=== PATIENT | female | born 1985 | race Caucasian/White ===

== ENCOUNTER 2017-12-23 07:54 | Observation (INO) | payer OTHER ==
--- NOTE | 2017-12-23 08:28 | ERPHSYRPT ---
- History of Present Illness Time Seen by Provider: 12/23/17 08:17 Source: patient Exam Limitations: no limitations Patient Subjective Stated Complaint: PT states "Last we went throught the process at [facility] and I passed everything fine on thursday but ever since then, I wake up with severe abdominal pain and pressure on my rectum. " Triage Nursing Assessment: Pt alert and oriented X 3, skin pt ambutlates without difficutly, able to speak in clear full sentences. PT will occasionally grimace and hold her abdomen. Physician History: patient presents with lower abdominal pain for past 3-4 days. Pt. is a at 8 weeks in her , who decided to have an elective . [facility] apparently [facility] and had elective 6 days ago. Patient took multiple meds including Mifeprex and misoprostol. Patient states she started passing blood clots and tissue on Thursday according to plan. Patient was doing well until following day when she continued to have lower abdominal crampy pain, that was intermittent lasting for 1-1/2 hour and then resolve spontaneously. [facility] called [facility] and was told that this was normal. Patient continued to have lower abdominal pain, crampy, localized and intermittent. Patient also continue to have some vaginal bleeding as well. Patient denies any fever, chills, nausea, vomiting, diarrhea or urinary symptoms. Patient been taking ibuprofen with some relief of her discomfort. Patient states pain is minimal presently. Timing/Duration: day(s) (4), intermittent Activites at Onset: rest Quality: cramping Onset Location: suprapubic, vaginal Pain Radiation: none Severity of Pain-Max: moderate Severity of Pain-Current: mild Prior abdominal problems: none Sexual intercourse history: single partner Modifying Factors: Improves With: antacids (improves), movement (improves) Associated Symptoms: abdominal pain, , No fever, No chills, No nausea, No vomiting, No dysuria, No urinary frequency Allergies/Adverse Reactions: No Known Drug Allergies Allergy (Unverified 12/23/17 08:07) Home Medications: Alprazolam 0.5 mg [xanAX 0.5 MG] 0.5 mg PO PRN 12/23/17 [History] Hx Tetanus, Diphtheria Vaccination/Date Given: No Hx Influenza Vaccination/Date Given: No Hx Pneumococcal Vaccination/Date Given: No - Review of Systems Constitutional: No Fever, No Chills Eyes: No Symptoms Ears, Nose, & Throat: No Symptoms Respiratory: No Cough, No Dyspnea Cardiac: No Chest Pain, No Edema, No Syncope Abdominal/Gastrointestinal: Abdominal Pain, No Nausea, No Vomiting, No Diarrhea , No Melena, No Appetite Changes Genitourinary Symptoms: Vaginal Bleeding, No Dysuria, No Urgency, No Vaginal Discharge Musculoskeletal: No Symptoms, No Back Pain, No Neck Pain Skin: No Symptoms, No Rash Neurological: No Symptoms, No Dizziness, No Focal Weakness, No Sensory Changes Psychological: No Symptoms Endocrine: No Symptoms All Other Systems: Reviewed and Negative - Past Medical History Pertinent Past Medical History: Yes Psycho-Social History: Anxiety - Past Surgical History Past Surgical History: No - Social History Smoking Status: Never smoker Exposure to second hand smoke: No Drug Use: none Patient Lives Alone: No - Female History Hx Last Menstrual Period: 12/23/2017 Hx Now: No - Nursing Vital Signs Nursing Vital Signs: Initial Vital Signs Temperature 98.6 F 12/23/17 07:59 Pulse Rate 84 12/23/17 07:59 Respiratory Rate 18 12/23/17 07:59 Blood Pressure 151/99 12/23/17 07:59 O2 Sat by Pulse Oximetry 98 12/23/17 07:59 Pain Scale Pain Intensity 6 - Physical Exam General Appearance: no apparent distress, alert Eye Exam: PERRL/EOMI, eyes nml inspection Ears, Nose, Throat Exam: normal ENT inspection, TMs normal, pharynx normal, moist mucous membranes Neck Exam: normal inspection, non-tender, supple, full range of motion Respiratory Exam: normal breath sounds, lungs clear, No respiratory distress Cardiovascular Exam: regular rate/rhythm, normal heart sounds, normal peripheral pulses Gastrointestinal/Abdomen Exam: soft, tenderness (Suprapubic/RLQ area), No mass Back Exam: normal inspection, normal range of motion, No CVA tenderness, No vertebral tenderness Extremity Exam: normal inspection, normal range of motion, pelvis stable Neurologic Exam: alert, oriented x 3, cooperative, prepress stripper II-XII nml as tested, normal mood/affect, sensation nml, No motor deficits Skin Exam: normal color, warm, dry Lymphatic Exam: No adenopathy SpO2: 98 Oxygen Delivery: Room Air - Course Nursing assessment & vital signs reviewed: Yes - Radiology Ultrasound Exam Pelvis Ultrasound: discussed w/radiologist (there is small amount of retained product of conception in the anterior wall of the uterus) Ordered Tests: Active Orders 24 hr Category Date Time Status IV Insertion STAT Care 12/23/17 08:17 Active Pelvic Exam Assist STAT Care 12/23/17 08:17 Active PELVIS TRANS VAGINAL [US] Stat Exams 12/23/17 10:01 Ordered BMP Stat Lab 12/23/17 08:34 Completed CBC W DIFF Stat Lab 12/23/17 08:34 Completed CULTURE,URINE Stat Lab 12/23/17 08:34 Received HCG, Quantitative (Inhouse) Stat Lab 12/23/17 08:34 Completed UA W/ MICROSCOPIC Stat Lab 12/23/17 08:34 Completed Medication Summary Discontinued Medications Generic Name Dose Route Start Last Admin Trade Name Freq PRN Reason Stop Dose Admin Nalbuphine HCl 5 mg 12/23/17 10:02 12/23/17 10:06 Nubain 10 Mg/Ml IV 12/23/17 10:03 5 mg STAT ONE Administration Nalbuphine HCl Confirm 12/23/17 10:05 Nubain 10 Mg/Ml Administered 12/23/17 10:06 Dose 10 mg .ROUTE .STK-MED ONE Lab/Rad Data: Laboratory Result Diagrams 12/23/17 08:34 12/23/17 08:34 Laboratory Results 12/23/17 12/23/17 12/23/17 Range/Units 08:34 08:34 08:34 WBC 4.8 (4.0-10.5) K/mm3 RBC 4.16 (4.1-5.4) M/mm3 Hgb 12.2 (12.0-16.0) gm/dl Hct 37.4 (35-47) % MCV 89.9 (78-100) fl MCH 29.3 (26-32) pg MCHC 32.6 (32-36) g/dl RDW 12.3 (11.5-14.0) % Plt Count 203 (150-450) K/mm3 MPV 10.1 H (6-9.5) fl Gran % 70.5 H (36.0-66.0) % Lymphocytes % 23.3 L (24.0-44.0) % Monocytes % 6.0 (0.0-12.0) % Eosinophils % 0.2 (0.00-5.0) % Basophils % 0.0 (0.0-0.4) % Basophils # 0 (0-0.4) Sodium 139 (137-145) mmol/L Potassium 4.1 (3.5-5.1) mmol/L Chloride 105 (98-107) mmol/L Carbon Dioxide 25 (22-30) mmol/L Anion Gap 13.7 (5-15) MEQ/L BUN 13 (7-17) mg/dL Creatinine 0.74 (0.52-1.04) mg/dL Estimated GFR > 60 ML/MIN Glucose 94 (74-106) mg/dL Calcium 9.2 (8.4-10.2) mg/dL Beta HCG, Quant 2820.9 H (0-25) mIU/ml Ur Collection Type VOID Urine Color LIGHT RED (YELLOW) Urine Appearance HAZY (CLEAR) Urine pH 5.0 (5-6) Ur Specific [place] 1.020 (1.005-1.025) Urine Protein TRACE (Negative) Urine Ketones NEGATIVE (NEGATIVE) Urine Blood 250 (0-5) Jayesh/ul Urine Nitrite NEGATIVE (NEGATIVE) Urine Bilirubin NEGATIVE (NEGATIVE) Urine Urobilinogen NORMAL (0-1) mg/dL Ur Leukocyte Esterase 1+ (NEGATIVE) Urine Microscopic RBC >100 (0-2) /HPF Urine Microscopic WBC 5-10 (0-5) /HPF Ur Epithelial Cells FEW (FEW) /HPF Urine Bacteria FEW (NEGATIVE) /HPF Urine Culture Reflexed YES (NO) Urine Glucose NEGATIVE (NEGATIVE) mg/dL Specimen Received 12/23 0845 - Progress Progress: improved Progress Note: 12/23/17 10:57 patient was given Nubain that did seem to improve her abdominal pain. Patient informed about ultrasound result and being admitted by Dr. Olson for further evaluation/care 12/23/17 10:59 Discussed with : Ramiro (Dr. Rubio was notified about patient and agreed to admit for further evaluation and treatment) Will see patient in: ED Counseled pt/family regarding: lab results, diagnosis, rad results - Departure Time of Disposition: 10:58 Departure Disposition: Observation Clinical Impression: Incomplete , Retained products of conception Condition: Stable Critical Care Time: No Referrals: KEITH FRANCIS [Primary Care Provider] -
[2017-12-23 08:44] LABS: Basophil (Absolute #) 0 (0-0.4); Eosinophil % 0.2 % (0.00-5.0); Eosinophil (Absolute #) 0.01 (0-0.5); Granulocyte Absolute (ANC) 3.41 (1.4-6.9); Granulocytes % 70.5 % (36.0-66.0); Hematocrit 37.4 % (35-47); Hemoglobin 12.2 gm/dl (12.0-16.0); Lymphocyte (Absolute #) 1.13 (1.0-4.6); Lymphocytes % 23.3 % (24.0-44.0); Mean Cell Volume 89.9 fl (78-100); Mean Corpuscular Hemoglobin 29.3 pg (26-32); Mean Corpuscular Hgb Concent. 32.6 g/dl (32-36); Mean Platelet Volume 10.1 fl (6-9.5); Monocyte (Absolute #) 0.29 (0.0-1.3); Platelet Count 203 K/mm3 (150-450); Red Blood Count 4.16 M/mm3 (4.1-5.4); Red Cell Distribution Width 12.3 % (11.5-14.0); White Blood Count 4.8 K/mm3 (4.0-10.5)
[2017-12-23 08:59] LABS: ANION GAP 13.7 MEQ/L (5-15); BLOOD UREA NITROGEN 13 mg/dL (7-17); CHLORIDE 105 mmol/L (98-107); Calcium 9.2 mg/dL (8.4-10.2); Carbon Dioxide 25 mmol/L (22-30); Creatinine 1 0.74 mg/dL (0.52-1.04); Glucose 94 mg/dL (74-106); Potassium 4.1 mmol/L (3.5-5.1); SODIUM 139 mmol/L (137-145)
[2017-12-23 09:06] LABS: Appearance HAZY (CLEAR)
[2017-12-23 09:07] LABS: Bacteria FEW /HPF (NEGATIVE); Bilirubin NEGATIVE (NEGATIVE); Blood 250 Ery/ul (0-5); Epithelial Cells FEW /HPF (FEW); Glucose NEGATIVE (NEGATIVE); Ketones NEGATIVE (NEGATIVE); Leukocyte Esterase 1+ (NEGATIVE); Nitrite NEGATIVE (NEGATIVE); Protein,Urine Dip TRACE (Negative); Urobilinogen NORMAL mg/dL (0-1)
[2017-12-23 09:16] LABS: HCG, Quantitative (Inhouse) 2820.9 mIU/ml (0-25)
[2017-12-23] MEDS ORDERED: Nubain 10 MG/ML IV ONE (10:02)
[2017-12-23] MEDS ORDERED: Nubain 10 MG/ML ONE (10:05)
[2017-12-23] MEDS ORDERED: Pepcid 20 MG VIAL IV ONE (11:21)
[2017-12-23] MEDS ORDERED: Reglan 10 MG/2 ML ONE (11:21)
[2017-12-23] MEDS ORDERED: Lactated Ringers 1,000 ML IV ONE ×2 (11:21→12:02)
[2017-12-23] MEDS ORDERED: Quelicin Fliptop 200 MG/10 ML IJ ONE (11:32)
[2017-12-23] MEDS ORDERED: Pitocin 10 UNITS/ML IV ONE (11:32)
[2017-12-23] MEDS ORDERED: Zofran 4 MG/2 ML VIAL IV ONE (11:32)
[2017-12-23] MEDS ORDERED: DIPRIVAN 200 MG/20 ML IV ONE (11:32)
[2017-12-23] MEDS ORDERED: Decadron 4 MG INJ IV ONE (11:32)
--- NOTE | 2017-12-23 11:37 | XRAY ---
Indication: Cramping and heavy bleeding. Status post December 17, 2017. Two-dimensional transvaginal pelvic ultrasound was performed. Comparison: April 23, 2012. Uterus again anteverted today measuring 11.3 x 5.1 x 6.5 cm. Myometrium homogeneous. Endometrial stripe is thickened measuring 1.6 cm with small focus of hypoechogenicity near the fundus associated with color-flow, possible focus of slow hemorrhage. Right ovary measures 3.2 x 1.5 x 3.0 cm and the left measures 2.4 x 1.0 x 2.2 cm with normal perfusion bilaterally. Right ovary demonstrates a 8 mm cyst. No suspicious adnexal mass or free fluid. Impression: 1. Thickened endometrial stripe with possible small focus of hemorrhage near the fundus. 2. Remaining transvaginal pelvic sonogram is negative. Comment: Preliminary report was given.
[2017-12-23] MEDS ORDERED: Sodium Chloride 0.9% 10 ML FLUSH Syringe IV PRN (12:01)
[2017-12-23] MEDS ORDERED: KEFZOL 1 GM ONE (12:03)
--- NOTE | 2017-12-23 12:39 | HP ---
CHIEF COMPLAINT: Heavy vaginal bleeding. HISTORY OF PRESENT ILLNESS: This patient is a 32 year-old 3, para 2 female who was approximately 8 weeks gestational age. Six days ago [facility] in [place] [facility] induced . She was given medication to take in the office and it sounds like she was sent home with Cytotec to take the following day which she did. She reports that she passed tissue and had some bleeding that night with some associated cramping which was manageable with [id number] medications. She had some increasing pain over the last two days with more severe lower uterine cramping and developed very heavy bleeding today. She was seen in the emergency room and the emergency room doctor reported moderate to severe bleeding during pelvic exam and she had pelvic ultrasound which showed some retained products in the uterine cavity. Due to the heavy bleeding and retained products she has been taken to the operating room for emergency dilation and currettage. She denies ever having any problems with anesthesia. She has had no prior surgery. PAST SURGICAL HISTORY: None. PAST MEDICAL HISTORY: Negative. ALLERGIES: NKDA. SOCIAL HISTORY: She has two children at home. She denies alcohol or drug use. FAMILY HISTORY: Noncontributory. REVIEW OF SYSTEMS: GENERAL: No history of fevers or chills. CVS: She has no cardiac history. No chest pain. RESPIRATORY: No cough. No shortness of breath. GI: No nausea, vomiting, diarrhea or constipation. : She had heavy vaginal bleeding with pelvic cramping as noted in the history of present illness. SKIN: No rash. No lesions. The remainder of systems reviewed on presentation was found to be negative. PHYSICAL EXAMINATION: GENERAL: She is alert and in no apparent distress, cooperative and pleasant. HEENT: Head - Normocephalic, atraumatic CVS: Regular rate and rhythm. No murmur. No gallop. No rub. RESPIRATORY: Clear to auscultation bilaterally. ABDOMEN: Soft. SKIN: [place], warm and dry. NEUROLOGIC: She moves all extremities equally. LAB DATA AND TESTS: BMP fairly unremarkable. Quantitative HCG in the emergency room 2820.9. UA showed 1+ leukocytes, trace protein, no nitrates, greater than 100 red blood cells and this is a voided specimen. Hemoglobin 12.2, hematocrit 37.4, white blood cell count 4,800 with 70% granulocytes, 23% lymphocytes, PLT count 203,000. ASSESSMENT: This is a 32 year-old female with incomplete with hemorrhage secondary to retained products of conception at this time. She is being taken to the operating room again for emergency suction dilatation and currettage and then will be admitted to the floor for observation. Prior to surgery I discussed risks, benefits and alternatives with the risks including bleeding, infection and damage to surrounding tissue as well as perforation of uterus and further retained products even following the procedure. The patient voiced her understanding of these risks and elected to proceed at this time.
--- NOTE | 2017-12-23 12:52 | OP ---
SURGERY DATE/TIME: 12/23/2017 1150 PREOPERATIVE DIAGNOSES: 1) Incomplete . 2) Retained products of conception with hemorrhage. POSTOPERATIVE DIAGNOSES: 1) Incomplete . 2) Retained products of conception with hemorrhage. PROCEDURE: Suction dilatation and curettage. SURGEON: Ricki Rubio M.D. ANESTHESIA: General by Carter García CRNA. ESTIMATED BLOOD LOSS: 50 cc. SPECIMEN: Uterine products of conception. The patient arrived in the emergency room bleeding heavily with retained products of conception following medically induced from [facility] in [place]. DESCRIPTION OF PROCEDURE: She was taken to the operating room prepped and draped in usual sterile fashion. She did receive 2 gm of Kefzol preoperatively and was prepped and draped in dorsal lithotomy position. A weighted speculum was inserted and the anterior edge of the cervix was grasped with single tooth tenaculum. Hegar dilators were used to dilate the cervix appropriately and then a 7 Guine[place] suction catheter was able to be placed through the cervical canal. The uterine cavity was then curetted clean with a suction catheter with some obvious ferrara tissue products removed fairly quickly after placement of the catheter. Curettage was done in all four quadrants with what appeared to be complete removal of retained products. The patient had minimal bleeding following removal of the products. The single tooth tenaculum was removed. Vaginal vault was wiped free of blood and clot with a sponge stick. Again, no active bleeding was appreciable upon completion of the procedure. The weighted speculum was removed and the patient was transferred to the recovery room in excellent condition.
[2017-12-23] MEDS ORDERED: NORCO 5/325 MG PO PRN (13:50)
[2017-12-23] MEDS ORDERED: MOTRIN 600 MG PO PRN (13:50)
[2017-12-23] MEDS ORDERED: Sodium Chloride 0.9% 10 ML FLUSH Syringe IV SCH (14:00)
[2017-12-23 16:24] LABS: Hematocrit 35.2 % (35-47); Hemoglobin 11.5 gm/dl (12.0-16.0); Mean Corpuscular Hemoglobin 29.4 pg (26-32); Mean Corpuscular Hgb Concent. 32.7 g/dl (32-36); Mean Platelet Volume 10.1 fl (6-9.5); Platelet Count 172 K/mm3 (150-450); Red Blood Count 3.91 M/mm3 (4.1-5.4); Red Cell Distribution Width 12.2 % (11.5-14.0); White Blood Count 6.5 K/mm3 (4.0-10.5)
[2017-12-23 16:27] VITALS: BP 102/61; PULSE 75; O2SAT 95
[2017-12-23] MEDS ORDERED: Versed 2 MG/2 ML Injection IV ONE (17:22)
[2017-12-23] MEDS ORDERED: SUBLIMAZE 100 MCG/2 ML IV ONE (17:22)
== END 2017-12-23 17:23 ==
LOC: ED 07:54 → MED SURG 11:31
PROVIDERS: ADMIT Family Medicine; ATTEND Family Medicine
PROC: 10D17ZZ Extraction of Products of Conception, Retained, Via Natural or Artificial Opening (ICD-10-PCS; principal; 2017-12-23)
DX: O03.4 Incomplete spontaneous abortion without complication (principal)
CPT/HCPCS: 36000; 36415; 76830; 80048; 81000; 84702; 85025; 85027; 87086; 96374; 99140; 99285; G0378; J0330; J0690; J1100; J2250; J2300; J2405; J2590; J2704; J3010

== ENCOUNTER 2020-03-16 13:07 | Emergency (ER) | payer OTHER ==
[2020-03-16 13:36] VITALS: O2SAT 99
[2020-03-16] MEDS ORDERED: Sodium Chloride 0.9% 1000 ML 1,000 ML IV STA (13:36)
[2020-03-16] MEDS ORDERED: Sodium Chloride 0.9% 1000 ML 1,000 ML ONE (13:41)
[2020-03-16 13:48] LABS: Absolute Neutrophil Ct (ANC) 1.56 (1.4-6.9); Basophil (Absolute #) 0 (0-0.4); Eosinophil % 0.6 % (0.00-5.0); Eosinophil (Absolute #) 0.02 (0-0.5); Hematocrit 40.6 % (35-47); Lymphocyte (Absolute #) 1.56 (1.0-4.6); Lymphocytes % 44.6 % (24.0-44.0); Mean Cell Volume 93.1 fl (78-100); Mean Corpuscular Hemoglobin 29.8 pg (26-32); Monocyte (Absolute #) 0.36 (0.0-1.3); Monocytes % 10.3 % (0.0-12.0); Neutrophil % 44.5 % (36.0-66.0); Platelet Count 192 K/mm3 (150-450); Red Blood Count 4.36 M/mm3 (4.1-5.4); Red Cell Distribution Width 12.6 % (11.5-14.0); White Blood Count 3.5 K/mm3 (4.0-10.5)
[2020-03-16 13:56] LABS: Appearance SLIGHTLY CLOUDY (CLEAR); Bilirubin NEGATIVE (NEGATIVE); Blood NEGATIVE Ery/ul (0-5); Epithelial Cells RARE /HPF (FEW); Glucose NEGATIVE (NEGATIVE); Ketones NEGATIVE (NEGATIVE); Leukocyte Esterase TRACE (NEGATIVE); Mucus SLIGHT /HPF (NEGATIVE); Nitrite NEGATIVE (NEGATIVE); Protein,Urine Dip NEGATIVE (Negative); Specific Gravity 1.018 (1.005-1.025); Urobilinogen NEGATIVE mg/dL (0-1)
[2020-03-16 14:16] LABS: ALBUMIN 4.6 g/dL (3.5-5.0); ALKALINE PHOSPHATASE 53 U/L (38-126); ANION GAP 14.1 MEQ/L (5-15); BLOOD UREA NITROGEN 20 mg/dL (7-17); CHLORIDE 104 mmol/L (98-107); Calcium 9.8 mg/dL (8.4-10.2); Carbon Dioxide 25 mmol/L (22-30); Creatinine 1 0.76 mg/dL (0.52-1.04); Glucose 95 mg/dL (74-106); HCG, Quantitative (Inhouse) < 2.39 mIU/ml; Potassium 3.7 mmol/L (3.5-5.1); SGOT/AST 28 U/L (14-36); SGPT/ALT 26 U/L (0-35); SODIUM 139 mmol/L (137-145); Total Protein 7.5 g/dL (6.3-8.2)
--- NOTE | 2020-03-16 14:46 | XRAY ---
Indication: Cramping and bleeding. Two-dimensional transabdominal and transvaginal early OB ultrasound performed. Comparison: None Uterus anteverted measuring 0.7 x 3.3 x 5.6 cm. Myometrium homogeneous. Endometrial stripe measures 7.1 mm. No endometrial cavity gestational sac, mass, or fluid collection. Right ovary measures 1.7 x 1.5 x 1.0 cm and the left measures 1.9 x 1.6 x 1.5 cm with normal color perfusion and folliculus cysts. No suspicious adnexal mass or free fluid. Impression: Negative early OB ultrasound. Correlated with serial beta hCG and follow-up sonogram regarding viability.
[2020-03-16 15:23] LABS: CHLAMYDIA DNA NOT DETECTED (NEGATIVE); GC DNA Probe NOT DETECTED (NEGATIVE)
--- NOTE | 2020-03-16 15:41 | ERPHSYRPT ---
- History of Present Illness Time Seen by Provider: 03/16/20 13:34 Historian: patient Exam Limitations: no limitations Patient Subjective Stated Complaint: pt reports taking 3 at home tests that were positive on February 08. pt estimates her last menstrual cycle at the end of December. pt states that she is scheduled to see her OB 03/20/20. states that she began to have abdominal cramping with right lower quadrant pain. pt states she also noticed minimal spotting this morning. pt reports approx one week ago she was treated for a yeast infection. Triage Nursing Assessment: pt is aox3, ambulatory to trt room with no difficulties, afebrile, pupils perrl, resps easy and non labored, radial pulses strong and equal, cap refill < 3 seconds, pt abd soft, tender to the RLQ, pt skin pink warm dry. Physician History: 35 years old female 4 para 2 at almost 8 to 9 weeks gestation per her LMP with 3+ home test at end of January 2020 presented in the ER with chief complaint of lower abdominal/right lower quadrant/pelvic cramping intermittently since yesterday which were lasting longer since morning but improved prior to arrival. Patient described this as a dull cramping mild to moderate intensity without any significant aggravating or relieving factors associated with vaginal spotting since morning. She is scheduled to see her primary OB early next week, does not have any ultrasound done. Denies any urinary symptoms. Timing/Duration: yesterday, intermittent, improved Activities at Onset: rest Quality: cramping Abdominal Pain Onset Location: RLQ, suprapubic Pain Radiation: no radiation Severity of Pain-Max: moderate Severity of Pain-Current: mild Modifying Factors: Improves With: nothing Associated Symptoms: other (Spotting) Previous symptoms: no prior history Allergies/Adverse Reactions: No Known Drug Allergies Allergy (Verified 03/16/20 13:35) Home Medications: No Reportable Medications [No Reported Medications] 03/16/20 [History] Hx Tetanus, Diphtheria Vaccination/Date Given: Yes Hx Influenza Vaccination/Date Given: No Hx Pneumococcal Vaccination/Date Given: No Immunizations Up to Date: Yes Travel Risk - International Travel Have you traveled outside of the country in past 3 weeks: No Have you or anyone close to you been diagnosed with or: No Do your reside in a community with a known COVID-19 case?: Yes If Yes where:: [place] - Coronavirus Screening Has patient experienced Coronavirus symptoms: No - Review of Systems Constitutional: No Symptoms Eyes: No Symptoms Ears, Nose, & Throat: No Symptoms Respiratory: No Symptoms Cardiac: No Symptoms Abdominal/Gastrointestinal: Abdominal Pain Genitourinary Symptoms: , Vaginal Bleeding Musculoskeletal: No Symptoms Skin: No Symptoms Neurological: No Symptoms Psychological: No Symptoms Endocrine: No Symptoms Hematologic/Lymphatic: No Symptoms Immunological/Allergic: No Symptoms - Past Medical History Pertinent Past Medical History: No Neurological History: No Pertinent History ENT History: No Pertinent History Cardiac History: No Pertinent History Respiratory History: No Pertinent History Endocrine Medical History: No Pertinent History Musculoskeletal History: No Pertinent History GI Medical History: No Pertinent History History: No Pertinent History Psycho-Social History: Anxiety Female Reproductive Disorders: No Pertinent History - Past Surgical History Past Surgical History: No Neuro Surgical History: No Pertinent History Cardiac: No Pertinent History Respiratory: No Pertinent History Gastrointestinal: No Pertinent History Genitourinary: No Pertinent History Musculoskeletal: No Pertinent History Female Surgical History: Other Other Surgical History: LEEP Dr Champion, OBGYN - Social History Smoking Status: Never smoker Exposure to second hand smoke: No Drug Use: none Patient Lives Alone: Yes - Female History Hx Last Menstrual Period: 01/09/20 Hx Now: Yes - Nursing Vital Signs Nursing Vital Signs: Initial Vital Signs Temperature 98.1 F 03/16/20 13:18 Pulse Rate 101 H 03/16/20 13:18 Respiratory Rate 20 03/16/20 13:18 Blood Pressure 150/98 03/16/20 13:18 O2 Sat by Pulse Oximetry 99 03/16/20 13:18 Pain Scale Pain Intensity 0 - Physical Exam General Appearance: no apparent distress Eye Exam: PERRL/EOMI, eyes nml inspection Ears, Nose, Throat Exam: normal ENT inspection, pharynx normal Neck Exam: normal inspection, supple, full range of motion Respiratory Exam: normal breath sounds, lungs clear Cardiovascular Exam: regular rate/rhythm, normal heart sounds Gastrointestinal/Abdomen Exam: soft, tenderness (At lower quadrant/suprapubic) Pelvic Exam: not done Extremity Exam: normal inspection, normal range of motion Neurologic Exam: alert, oriented x 3, cooperative Skin Exam: normal color SpO2 Interpretation: normal SpO2: 99 O2 Delivery: Room Air - Course Nursing assessment & vital signs reviewed: Yes Ordered Tests: Active Orders 24 hr Category Date Time Status IV Insertion STAT Care 03/16/20 13:37 Active ABDOMEN AND PELVIS W CONTRAST [CT] Stat Exams 03/16/20 14:32 Completed OB <14 WKS 1ST GESTATION [US] Stat Exams 03/16/20 13:35 Completed CBC W DIFF Stat Lab 03/16/20 13:49 Completed CMP Stat Lab 03/16/20 13:49 Completed HCG, Quantitative (Inhouse) Stat Lab 03/16/20 13:49 Completed UA W/RFX UR CULTURE Stat Lab 03/16/20 13:49 Completed Medication Summary Discontinued Medications Generic Name Dose Route Start Last Admin Trade Name Freq PRN Reason Stop Dose Admin Sodium Chloride 1,000 mls @ 999 mls/hr 03/16/20 13:36 03/16/20 14:43 Sodium Chloride 0.9% 1000 Ml IV 03/16/20 14:36 Infused .Q1H1M STA Infusion Sodium Chloride Confirm 03/16/20 13:41 Sodium Chloride 0.9% 1000 Ml Administered 03/16/20 13:42 Dose 1,000 mls @ ud .ROUTE .[facility] Lab/Rad Data: Laboratory Result Diagrams 03/16/20 13:49 03/16/20 13:49 Laboratory Results 03/16/20 03/16/20 03/16/20 Range/Units 13:49 13:49 13:49 WBC (4.0-10.5) K/mm3 RBC (4.1-5.4) M/mm3 Hgb (12.0-16.0) gm/dl Hct (35-47) % MCV (78-100) fl MCH (26-32) pg MCHC (32-36) g/dl RDW (11.5-14.0) % Plt Count (150-450) K/mm3 MPV (7.5-11.0) fl Gran % (36.0-66.0) % Eos # (Auto) (0-0.5) Absolute Lymphs (auto) (1.0-4.6) Absolute Monos (auto) (0.0-1.3) Lymphocytes % (24.0-44.0) % Monocytes % (0.0-12.0) % Eosinophils % (0.00-5.0) % Basophils % (0.0-0.4) % Absolute Granulocytes (1.4-6.9) Basophils # (0-0.4) Sodium 139 (137-145) mmol/L Potassium 3.7 (3.5-5.1) mmol/L Chloride 104 (98-107) mmol/L Carbon Dioxide 25 (22-30) mmol/L Anion Gap 14.1 (5-15) MEQ/L BUN 20 H (7-17) mg/dL Creatinine 0.76 (0.52-1.04) mg/dL Estimated GFR > 60.0 ML/MIN Glucose 95 (74-106) mg/dL Calcium 9.8 (8.4-10.2) mg/dL Total Bilirubin 0.60 (0.2-1.3) mg/dL AST 28 (14-36) U/L ALT 26 (0-35) U/L Alkaline Phosphatase 53 (38-126) U/L Serum Total Protein 7.5 (6.3-8.2) g/dL Albumin 4.6 (3.5-5.0) g/dL Beta HCG, Quant < 2.39 mIU/ml Urine Color YELLOW (YELLOW) Urine Appearance SLIGHTLY CLOUDY (CLEAR) Urine pH 5.0 (5-6) Ur Specific [place] 1.018 (1.005-1.025) Urine Protein NEGATIVE (Negative) Urine Ketones NEGATIVE (NEGATIVE) Urine Blood NEGATIVE (0-5) Jayesh/ul Urine Nitrite NEGATIVE (NEGATIVE) Urine Bilirubin NEGATIVE (NEGATIVE) Urine Urobilinogen NEGATIVE (0-1) mg/dL Ur Leukocyte Esterase TRACE (NEGATIVE) Urine WBC (Auto) 3-5 (0-5) /HPF Urine RBC (Auto) NONE (0-2) /HPF U Epithel Cells (Auto) RARE (FEW) /HPF Urine Bacteria (Auto) NONE (NEGATIVE) /HPF Urine Mucus (Auto) SLIGHT (NEGATIVE) /HPF Urine Culture Reflexed NO (NO) Urine Glucose NEGATIVE (NEGATIVE) mg/dL Chlamydia DNA Probe NOT DETECTED (NEGATIVE) N.gonorrhoeae DNA Probe NOT DETECTED (NEGATIVE) 03/16/20 Range/Units 13:49 WBC 3.5 L (4.0-10.5) K/mm3 RBC 4.36 (4.1-5.4) M/mm3 Hgb 13.0 (12.0-16.0) gm/dl Hct 40.6 (35-47) % MCV 93.1 (78-100) fl MCH 29.8 (26-32) pg MCHC 32.0 (32-36) g/dl RDW 12.6 (11.5-14.0) % Plt Count 192 (150-450) K/mm3 MPV 10.0 (7.5-11.0) fl Gran % 44.5 (36.0-66.0) % Eos # (Auto) 0.02 (0-0.5) Absolute Lymphs (auto) 1.56 (1.0-4.6) Absolute Monos (auto) 0.36 (0.0-1.3) Lymphocytes % 44.6 H (24.0-44.0) % Monocytes % 10.3 (0.0-12.0) % Eosinophils % 0.6 (0.00-5.0) % Basophils % 0.0 (0.0-0.4) % Absolute Granulocytes 1.56 (1.4-6.9) Basophils # 0 (0-0.4) Sodium (137-145) mmol/L Potassium (3.5-5.1) mmol/L Chloride (98-107) mmol/L Carbon Dioxide (22-30) mmol/L Anion Gap (5-15) MEQ/L BUN (7-17) mg/dL Creatinine (0.52-1.04) mg/dL Estimated GFR ML/MIN Glucose (74-106) mg/dL Calcium (8.4-10.2) mg/dL Total Bilirubin (0.2-1.3) mg/dL AST (14-36) U/L ALT (0-35) U/L Alkaline Phosphatase (38-126) U/L Serum Total Protein (6.3-8.2) g/dL Albumin (3.5-5.0) g/dL Beta HCG, Quant mIU/ml Urine Color (YELLOW) Urine Appearance (CLEAR) Urine pH (5-6) Ur Specific [place] (1.005-1.025) Urine Protein (Negative) Urine Ketones (NEGATIVE) Urine Blood (0-5) Jayesh/ul Urine Nitrite (NEGATIVE) Urine Bilirubin (NEGATIVE) Urine Urobilinogen (0-1) mg/dL Ur Leukocyte Esterase (NEGATIVE) Urine WBC (Auto) (0-5) /HPF Urine RBC (Auto) (0-2) /HPF U Epithel Cells (Auto) (FEW) /HPF Urine Bacteria (Auto) (NEGATIVE) /HPF Urine Mucus (Auto) (NEGATIVE) /HPF Urine Culture Reflexed (NO) Urine Glucose (NEGATIVE) mg/dL Chlamydia DNA Probe (NEGATIVE) N.gonorrhoeae DNA Probe (NEGATIVE) - Progress Progress: improved, re-examined Progress Note: 03/16/20 16:30 35 years old is evaluated for right lower quadrant/suprapubic pain. She is offered pain medication but patient refused. Per patient her last cycle was in end of December and she had a positive test. I have obtained hCG level which is at non level and ultrasound did not show any intrauterine INR ectopic. Since patient was having tenderness in the right lower quadrant I have obtained ultrasound which ruled out acute appendicitis or any other acute intra-abdominal pathology. I think patient has irregular cycle and she might be having premenstrual cramps. She does have appointment with OB early next week which I have advised her to keep. I am not sure whether patient was earlier or not and I have advised her to discuss with her doctor. At this point I do not think patient needs any further work-up and is stable for discharge. Counseled pt/family regarding: lab results, diagnosis, need for follow-up, rad results - Departure Departure Disposition: Home Clinical Impression: Right lower quadrant pain Condition: Stable Critical Care Time: No Referrals: KEITH FRANCIS [Primary Care Provider] - Follow Up with PCP/3 days Instructions: Acute Abdomen (Belly Pain), Adult (DC) Additional Instructions: Take Tylenol/ibuprofen as needed. Keep appointment with your [facility]. Follow- up with primary care as well for reevaluation. Return to ER for any worsening.
[2020-03-16 16:18] VITALS: BP 133/87; PULSE 72
--- NOTE | 2020-03-16 16:21 | XRAY ---
Indication: Right pelvic pain. Negative same day pelvic sonogram. Multiple contiguous axial images obtained through the abdomen and pelvis using 80 cc of Isovue 370 contrast only. Comparison: February 10, 2014. Lung bases demonstrates minimal dependent atelectasis without infiltrate or effusion. Heart is not enlarged. Noncontrasted stomach and bowel loops appear nonobstructed. Normal retrocecal appendix. Minimal sigmoid diverticulosis without diverticulitis. No free fluid/air. Remaining liver, gallbladder, pancreas, spleen, adrenal glands, kidneys, ureters, bladder, uterus, and aorta appear unremarkable. No pathologic retroperitoneal lymphadenopathy. Osseous structures intact. No ventral or inguinal hernias. Impression: 1. Sigmoid diverticulosis without diverticulitis. 2. Remaining CT abdomen/pelvis with contrast exam is negative.
== END 2020-03-16 16:43 | disposition home or self-care (01) ==
LOC: ED 13:07
DX: R10.31 Right lower quadrant pain (principal)
CPT/HCPCS: 36000; 36415; 74177; 76801; 80053; 81001; 84702; 85025; 87491; 87591; 96360; 99284

== ENCOUNTER 2023-08-14 14:16 | Emergency (ER) | payer OTHER ==
--- NOTE | 2023-08-14 14:25 | ERPHSYRPT ---
- History of Present Illness Time Seen by Provider: 08/14/23 14:24 Historian: patient Exam Limitations: no limitations Physician History: This is a 38-year-old white female patient of nurse practitioner Sean and has a history of hypothyroidism and diabetes and presents with epigastric abdominal pain that began approximately 5 days ago. The pain currently is constant burning with episodic stabbing pain that is localized and nonradiating. She has had no prior abdominal surgeries in the past. She complains of associated vomiting and diarrhea symptoms. She did state that she had pizza for dinner late last night. She she has no known exposures to individuals similar symptoms or diagnosed with flu. Timing/Duration: day(s) (5) Activities at Onset: none Quality: burning, sharpness, stabbing Abdominal Pain Onset Location: epigastric Severity of Pain-Max: moderate Severity of Pain-Current: mild (To moderate) Modifying Factors: Improves With: vomiting Associated Symptoms: nausea, vomiting Previous symptoms: no prior history, no recent treatment Allergies/Adverse Reactions: No Known Drug Allergies Allergy (Verified 10/17/21 12:05) Home Medications: Metformin HCl 500 mg [Glucophage 500 MG] 500 mg PO BIDWM 08/14/23 [History] Phentermine HCl 37.5 mg PO DAILY 08/14/23 [History] Thyroid,Pork [Medical Equipment Technician Thyroid] 30 mg PO DAILY 08/14/23 [History] Hx Tetanus, Diphtheria Vaccination/Date Given: Yes Hx Influenza Vaccination/Date Given: No Hx Pneumococcal Vaccination/Date Given: No Travel Risk - International Travel Have you traveled outside of the country in past 3 weeks: No - Coronavirus Screening Are you exhibiting any of the following symptoms?: Yes Symptoms: Vomiting/Diarrhea Close contact with a COVID-19 positive Pt in past 14-21 Days: No - Review of Systems Constitutional: No Symptoms Eyes: No Symptoms Ears, Nose, & Throat: No Symptoms Respiratory: No Symptoms Cardiac: No Symptoms Abdominal/Gastrointestinal: Abdominal Pain, Nausea, Vomiting, Diarrhea, Appetite Changes Genitourinary Symptoms: No Symptoms Musculoskeletal: No Symptoms Skin: No Symptoms Neurological: No Symptoms Psychological: No Symptoms Endocrine: No Symptoms Hematologic/Lymphatic: No Symptoms Immunological/Allergic: No Symptoms All Other Systems: Reviewed and Negative - Past Medical History Pertinent Past Medical History: No Neurological History: No Pertinent History ENT History: No Pertinent History Cardiac History: No Pertinent History Respiratory History: No Pertinent History Endocrine Medical History: No Pertinent History Musculoskeletal History: No Pertinent History GI Medical History: No Pertinent History History: No Pertinent History Psycho-Social History: Anxiety Female Reproductive Disorders: No Pertinent History - Past Surgical History Past Surgical History: No Neuro Surgical History: No Pertinent History Cardiac: No Pertinent History Respiratory: No Pertinent History Gastrointestinal: No Pertinent History Genitourinary: No Pertinent History Musculoskeletal: No Pertinent History Female Surgical History: Other Other Surgical History: LEEP Dr Champion, OBGYN - Social History Smoking Status: Never smoker Exposure to second hand smoke: No Drug Use: none Patient Lives Alone: Yes - Nursing Vital Signs Nursing Vital Signs: Initial Vital Signs Temperature 97.0 F 08/14/23 14:23 Pulse Rate 101 H 08/14/23 14:23 Respiratory Rate 22 08/14/23 14:23 Blood Pressure 133/83 08/14/23 14:23 O2 Sat by Pulse Oximetry 100 08/14/23 14:23 Pain Scale Pain Intensity 6 - Physical Exam General Appearance: no apparent distress, alert, anxiety, thin Eye Exam: PERRL/EOMI, eyes nml inspection Ears, Nose, Throat Exam: normal ENT inspection, moist mucous membranes Neck Exam: normal inspection, non-tender, supple, full range of motion Respiratory Exam: normal breath sounds, lungs clear, airway intact, No chest tenderness, No respiratory distress Cardiovascular Exam: regular rate/rhythm, normal heart sounds, normal peripheral pulses Gastrointestinal/Abdomen Exam: soft, normal bowel sounds, tenderness (Epigastrium), guarding (Gastrium to palpation), No rebound Pelvic Exam: not done Rectal Exam: not done Back Exam: normal inspection, normal range of motion, No CVA tenderness, No vertebral tenderness Extremity Exam: normal inspection, normal range of motion, pelvis stable Neurologic Exam: alert, oriented x 3, cooperative, diagnostic radiologic technologist II-XII nml as tested, normal mood/affect, nml cerebellar function, nml station & gait, sensation nml Skin Exam: normal color, warm, dry Lymphatic Exam: No adenopathy SpO2 Interpretation: normal O2 Delivery: Room Air - Course Nursing assessment & vital signs reviewed: Yes Ordered Tests: Active Orders 24 hr Category Date Time Status IV Insertion STAT Care 08/14/23 14:47 Active ABDOMEN AND PELVIS W/0 CONTRAS [CT] Stat Exams 08/14/23 14:47 Completed AMYLASE Stat Lab 08/14/23 14:54 Completed CBC W DIFF Stat Lab 08/14/23 14:54 Completed CMP Stat Lab 08/14/23 14:54 Completed CULTURE,URINE Stat Lab 08/14/23 14:49 Received HCG QUALITATIVE, URINE Stat Lab 08/14/23 14:49 Completed LIPASE Stat Lab 08/14/23 14:54 Completed UA W/RFX UR CULTURE Stat Lab 08/14/23 14:49 Completed Medication Summary Generic Name Dose Route Start Last Admin Trade Name Freq PRN Reason Stop Dose Admin Sodium Chloride 1,000 mls @ 999 mls/hr 08/14/23 14:47 08/14/23 15:02 Sodium Chloride 0.9% 1000 Ml IV 08/14/23 15:47 999 mls/hr .Q1H1M STA Administration Discontinued Medications Generic Name Dose Route Start Last Admin Trade Name Freq PRN Reason Stop Dose Admin Hydromorphone HCl 1 mg 08/14/23 14:47 08/14/23 15:06 Hydromorphone 1 Mg/1ml Inj IV 08/14/23 14:48 1 mg STAT ONE Administration Hydromorphone HCl Confirm 08/14/23 14:53 Hydromorphone 1 Mg/1ml Inj Administered 08/14/23 14:54 Dose 1 mg .ROUTE .STK-MED ONE Sodium Chloride Confirm 08/14/23 14:54 Sodium Chloride 0.9% 1000 Ml Administered 08/14/23 14:55 Dose 1,000 mls @ ud .ROUTE .STK-MED ONE Ondansetron HCl 4 mg 08/14/23 14:47 08/14/23 15:04 Ondansetron Hcl 4 Mg/2 Ml Vial IV 08/14/23 14:48 4 mg STAT ONE Administration Ondansetron HCl Confirm 08/14/23 14:52 Ondansetron Hcl 4 Mg/2 Ml Vial Administered 08/14/23 14:53 Dose 4 mg .ROUTE .STK-MED ONE Pantoprazole Sodium 40 mg 08/14/23 14:47 08/14/23 15:06 Pantoprazole 40 Mg Vial IV 08/14/23 14:48 40 mg STAT ONE Administration Pantoprazole Sodium Confirm 08/14/23 14:52 Pantoprazole 40 Mg Vial Administered 08/14/23 14:53 Dose 40 mg IV .STK-MED ONE Lab/Rad Data: Laboratory Result Diagrams 08/14/23 14:54 08/14/23 14:54 Laboratory Results 08/14/23 08/14/23 08/14/23 Range/Units 14:54 14:54 14:49 WBC 9.8 (4.0-10.5) x10^3/uL RBC 5.21 (4.1-5.4) x10^6/uL Hgb 15.1 (12.0-16.0) g/dL Hct 46.7 (35-47) % MCV 89.6 (78-100) fL MCH 29.0 (26-32) pg MCHC 32.3 (32-36) g/dL RDW 12.1 (11.5-14.0) % Plt Count 316 (150-450) x10^3/uL MPV 9.9 (7.5-11.0) fL Gran % 63.6 (36.0-66.0) % Immature Gran % (Auto) 0.4 (0.00-0.4) % Nucleat RBC Rel Count 0.0 (0.00-0.1) % Eos # (Auto) 0.02 (0-0.5) x10^3/uL Immature Gran # (Auto) 0.04 H (0.00-0.03) x10^3u/L Absolute Lymphs (auto) 2.85 (1.0-4.6) x10^3/uL Absolute Monos (auto) 0.64 (0.0-1.3) x10^3/uL Absolute Nucleated RBC 0.00 (0.00-0.01) x10^3u/L Lymphocytes % 29.1 (24.0-44.0) % Monocytes % 6.5 (0.0-12.0) % Eosinophils % 0.2 (0.00-5.0) % Basophils % 0.2 (0.0-0.4) % Absolute Granulocytes 6.21 (1.4-6.9) x10^3/uL Basophils # 0.02 (0-0.4) x10^3/uL Sodium 135 L (137-145) mmol/L Potassium 3.7 (3.5-5.1) mmol/L Chloride 100 (98-107) mmol/L Carbon Dioxide 26 (22-30) mmol/L Anion Gap 12.8 (5-15) MEQ/L BUN 14 (7-17) mg/dL Creatinine 0.82 (0.52-1.04) mg/dL Estimated GFR 94.4 ML/MIN Glucose 97 (74-106) mg/dL Calcium 9.4 (8.4-10.2) mg/dL Total Bilirubin 0.50 (0.2-1.3) mg/dL AST 22 (14-36) U/L ALT 18 (0-35) U/L Alkaline Phosphatase 55 (38-126) U/L Serum Total Protein 7.0 (6.3-8.2) g/dL Albumin 4.3 (3.5-5.0) g/dL Amylase 86 (30-110) U/L Lipase 66 (23-300) U/L Urine Color (Yellow) Urine Appearance (Clear) Urine pH (4.6-8.0) Ur Specific [place] (1.005-1.030) Urine Protein (Negative) Urine Glucose (UA) (Negative) mg/dL Urine Ketones (Negative) Urine Blood (Negative) Urine Nitrite (Negative) Urine Bilirubin (Negative) Urine Urobilinogen (0.2) mg/dL Ur Leukocyte Esterase (Negative) U Hyaline Cast (Auto) (0-2) /LPF Urine Microscopic RBC (0-5) /HPF Urine Microscopic WBC (0-5) /HPF Ur Epithelial Cells (None Seen) /HPF Urine Bacteria (None Seen) /HPF Urine Culture Reflexed (NO) Urine HCG, Qual NEGATIVE (NEGATIVE) 08/14/23 Range/Units 14:49 WBC (4.0-10.5) x10^3/uL RBC (4.1-5.4) x10^6/uL Hgb (12.0-16.0) g/dL Hct (35-47) % MCV (78-100) fL MCH (26-32) pg MCHC (32-36) g/dL RDW (11.5-14.0) % Plt Count (150-450) x10^3/uL MPV (7.5-11.0) fL Gran % (36.0-66.0) % Immature Gran % (Auto) (0.00-0.4) % Nucleat RBC Rel Count (0.00-0.1) % Eos # (Auto) (0-0.5) x10^3/uL Immature Gran # (Auto) (0.00-0.03) x10^3u/L Absolute Lymphs (auto) (1.0-4.6) x10^3/uL Absolute Monos (auto) (0.0-1.3) x10^3/uL Absolute Nucleated RBC (0.00-0.01) x10^3u/L Lymphocytes % (24.0-44.0) % Monocytes % (0.0-12.0) % Eosinophils % (0.00-5.0) % Basophils % (0.0-0.4) % Absolute Granulocytes (1.4-6.9) x10^3/uL Basophils # (0-0.4) x10^3/uL Sodium (137-145) mmol/L Potassium (3.5-5.1) mmol/L Chloride (98-107) mmol/L Carbon Dioxide (22-30) mmol/L Anion Gap (5-15) MEQ/L BUN (7-17) mg/dL Creatinine (0.52-1.04) mg/dL Estimated GFR ML/MIN Glucose (74-106) mg/dL Calcium (8.4-10.2) mg/dL Total Bilirubin (0.2-1.3) mg/dL AST (14-36) U/L ALT (0-35) U/L Alkaline Phosphatase (38-126) U/L Serum Total Protein (6.3-8.2) g/dL Albumin (3.5-5.0) g/dL Amylase (30-110) U/L Lipase (23-300) U/L Urine Color Yellow (Yellow) Urine Appearance Clear (Clear) Urine pH 5.5 (4.6-8.0) Ur Specific [place] 1.025 (1.005-1.030) Urine Protein Negative (Negative) Urine Glucose (UA) Negative (Negative) mg/dL Urine Ketones Trace A (Negative) Urine Blood Negative (Negative) Urine Nitrite Negative (Negative) Urine Bilirubin Negative (Negative) Urine Urobilinogen 1.0 A (0.2) mg/dL Ur Leukocyte Esterase Small A (Negative) U Hyaline Cast (Auto) NONE SEEN (0-2) /LPF Urine Microscopic RBC 0-2 (0-5) /HPF Urine Microscopic WBC 6-10 A (0-5) /HPF Ur Epithelial Cells Few (None Seen) /HPF Urine Bacteria Few A (None Seen) /HPF Urine Culture Reflexed YES (NO) Urine HCG, Qual (NEGATIVE) - Progress Progress: improved, pain not gone completely Progress Note: 08/14/23 14:56 This patient's medical issue is 1 of moderate complexity. Level complex in the work-up performed is based on review of the patient's past medical history, review the patient's medication list, review of the patient's drug allergy list, history present illness and physical findings on examination. The work-up in this patient includes placement of intravenous line, infusion of normal saline solution, infusion of intravenous Protonix, infusion of intravenous Dilaudid, infusion of intravenous Zofran, CBC, CMP, urine test, urinalysis, amylase and lipase level. In addition I am ordering a CAT scan of the abdomen pelvis without contrast. 08/14/23 15:[address] scan of the abdomen pelvis without contrast was interpreted by the radiologist and I reviewed the impression. I also discussed the findings of the CT scan of the abdomen pelvis with the patient. There is a new, incidental right middle lobe calcified granuloma. There is a normal appendix. There is new, diffuse, circumferential wall thickening and stranding favoring enteritis. The pelvis demonstrates moderate free fluid, more than expected for enteritis. There is no evidence of walled off fluid collection or free air. 08/14/23 15:27 The laboratory results were interpreted by me. Patient does have a urinary tract infection that is mild and present. We will cover her enteritis and UTI using Flagyl and Levaquin intravenously and Solu-Medrol intravenously here in the emergency department. We will then remotely send a prescription for Zofran, Bactrim DS and Flagyl prescriptions to the patient's pharmacy. Counseled pt/family regarding: lab results, diagnosis, need for follow-up, rad results Medical Desision Making - Diagnostic Testing Diagnostic test were ordered, analyzed, and reviewed by me: Yes Radiological Interpretation: Reviewed by me, Teleradiologist Report - Risk of complications The pt has a mod risk of morbidity or mortality based on: Need for prescription drug management - Departure Departure Disposition: Home Clinical Impression: Enteritis, UTI (urinary tract infection) Condition: Stable Critical Care Time: No Referrals: KEITH FRANCIS NP [Primary Care Provider] - Follow up/PCP as directed Additional Instructions: Drink plenty of fluids. Avoid fatty greasy spicy foods. Take your antibiotics as prescribed. Call your primary care provider on 08/17/2023 for further evaluation management. Return to the emergency department if symptoms worsen. Prescriptions: Ondansetron ODT 4 MG [Zofran Odt 4 mg] 4 mg PO Q6H PRN PRN #10 tablet PRN Reason: Vomiting Smz/Tmp Ds Tablet [Bactrim Ds Tablet] 1 udtab PO BID #14 tablet Metronidazole 500 mg [Flagyl 500 MG] 500 mg PO TID #21 tablet
[2023-08-14 14:28] VITALS: RESP 22; TEMP 97
[2023-08-14] MEDS ORDERED: Sodium Chloride 0.9% 1000 ML 1,000 ML IV STA (14:47)
[2023-08-14] MEDS ORDERED: PROTONIX 40 MG IV IV ONE ×2 (14:47→14:52)
[2023-08-14] MEDS ORDERED: Zofran 4 MG/2 ML VIAL IV ONE (14:47)
[2023-08-14] MEDS ORDERED: Hydromorphone 1 mg/ml Injection IV ONE (14:47)
[2023-08-14] MEDS ORDERED: Zofran 4 MG/2 ML VIAL ONE (14:52)
[2023-08-14] MEDS ORDERED: Hydromorphone 1 mg/ml Injection ONE (14:53)
[2023-08-14] MEDS ORDERED: Sodium Chloride 0.9% 1000 ML 1,000 ML ONE (14:54)
[2023-08-14 14:56] LABS: Absolute Neutrophil Ct (ANC) 6.21 x10^3/uL (1.4-6.9); BASOPHIL % 0.2 % (0.0-0.4); Basophil (Absolute #) 0.02 x10^3/uL (0-0.4); Eosinophil % 0.2 % (0.00-5.0); Eosinophil (Absolute #) 0.02 x10^3/uL (0-0.5); Hematocrit 46.7 % (35-47); Hemoglobin 15.1 g/dL (12.0-16.0); IMMATURE GRAN # 0.04 x10^3u/L (0.00-0.03); IMMATURE GRAN % 0.4 % (0.00-0.4); Lymphocyte (Absolute #) 2.85 x10^3/uL (1.0-4.6); Lymphocytes % 29.1 % (24.0-44.0); Mean Cell Volume 89.6 fL (78-100); Mean Corpuscular Hgb Concent. 32.3 g/dL (32-36); Mean Platelet Volume 9.9 fL (7.5-11.0); Monocyte (Absolute #) 0.64 x10^3/uL (0.0-1.3); Monocytes % 6.5 % (0.0-12.0); Neutrophil % 63.6 % (36.0-66.0); Platelet Count 316 x10^3/uL (150-450); Red Blood Count 5.21 x10^6/uL (4.1-5.4); Red Cell Distribution Width 12.1 % (11.5-14.0); White Blood Count 9.8 x10^3/uL (4.0-10.5)
[2023-08-14 14:56] LABS: HCG URINE TEST NEGATIVE (NEGATIVE)
[2023-08-14 15:00] LABS: Appearance Clear (Clear); Bacteria Few /HPF (None Seen); Bilirubin Negative (Negative); Blood Negative (Negative); Epithelial Cells Few /HPF (None Seen); Glucose, Urine Negative (Negative); Hyaline Casts NONE SEEN /LPF (0-2); Ketones Trace (Negative); Leukocyte Esterase Small (Negative); Nitrite Negative (Negative); Ph 5.5 (4.6-8.0); Protein,Urine Dip Negative (Negative); RBC 0-2 /HPF (0-5); Specific Gravity 1.025 (1.005-1.030)
[2023-08-14 15:01] LABS: ADD URINE CULTURE? YES (NO)
[2023-08-14 15:01] LABS: ALBUMIN 4.3 g/dL (3.5-5.0); ANION GAP 12.8 MEQ/L (5-15); BILIRUBIN,TOTAL 0.5 mg/dL (0.2-1.3); Calcium 9.4 mg/dL (8.4-10.2); Creatinine 1 0.82 mg/dL (0.52-1.04); EST GLOMERULAR FILTRATION RATE 94.4 ML/MIN; Potassium 3.7 mmol/L (3.5-5.1)
--- NOTE | 2023-08-14 15:21 | XRAY ---
Indication: Epigastric pain. Vomiting and diarrhea. Multiple contiguous axial images obtained through the abdomen and pelvis without contrast. Comparison: March 16, 2020 Lung bases clear with new incidental right middle lobe calcified granuloma. Heart not enlarged. Stomach is mildly fluid distended along with intraluminal radiopacities presumed ingested medication/bismuth. Noncontrasted bowel loops appear nonobstructed with normal appendix. Small bowel loops demonstrates new diffuse circumferential wall thickening and stranding which would favor enteritis. Pelvis demonstrates moderate free fluid more than expected for enteritis. No walled off fluid collection or free air. Remaining liver, gallbladder, pancreas, spleen, adrenal glands, kidneys, ureters, bladder, uterus, and aorta are unremarkable for noncontrast exam. Osseous structures intact. Impression: New diffuse small bowel wall thickening with stranding. Rule out enteritis. Moderate pelvic free fluid more than expected for enteritis.
[2023-08-14 15:33] LABS: INFLUENZA A NEGATIVE (NEGATIVE); INFLUENZA B NEGATIVE (NEGATIVE); RESPIRATORY SYNCTIAL VIRUS NEGATIVE (NEGATIVE); SARS-CoV-2 Xpert Express NEGATIVE (NEGATIVE)
[2023-08-14] MEDS ORDERED: FLAGYL 500 MG IVPB 500 MG/100 ML BAG IV STA (15:33)
[2023-08-14] MEDS ORDERED: Levofloxacin 500 MG Tablet PO ONE (15:34)
[2023-08-14] MEDS ORDERED: FLAGYL 500 MG IVPB 500 MG/100 ML BAG IV ONE (15:38)
[2023-08-14] MEDS ORDERED: Levofloxacin 500 MG Tablet ONE (15:38)
[2023-08-14 16:05] VITALS: BP 114/69; PULSE 85; O2SAT 100
== END 2023-08-14 16:17 | disposition home or self-care (01) ==
LOC: ED 14:16
DX: K52.9 Noninfective gastroenteritis and colitis, unspecified (principal); N39.0 Urinary tract infection, site not specified; R11.2 Nausea with vomiting, unspecified; E11.9 Type 2 diabetes mellitus without complications; Z79.84 Long term (current) use of oral hypoglycemic drugs; Z79.899 Other long term (current) drug therapy
CPT/HCPCS: 0241U; 36000; 36415; 74176; 80053; 81001; 81025; 82150; 83690; 85025; 87086; 96360; 96365; 96374; 96375; 99284; J1170; J2405; A9270-GY

== ENCOUNTER 2024-11-16 22:30 | Emergency (ER) | payer OTHER ==
[2024-11-16 22:48] VITALS: TEMP 96.6
[2024-11-16] MEDS ORDERED: Sodium Chloride 0.9% 1000 ML 1,000 ML ONE (22:59)
[2024-11-16] MEDS: Sodium Chloride 0.9% 1000 ML 1,000 ML IV STA (23:00)
[2024-11-16 23:12] LABS: Absolute Neutrophil Ct (ANC) 17.04 x10^3/uL (1.56-6.13); BASOPHIL % 0.1 % (0.1-1.2); Basophil (Absolute #) 0.02 x10^3/uL (0.01-0.08); Eosinophil (Absolute #) 0 x10^3/uL (0.04-0.36); Hematocrit 49.3 % (34.1-44.9); IMMATURE GRAN % 0.5 % (0.001-0.429); Lymphocyte (Absolute #) 2.85 x10^3/uL (1.18-3.74); Lymphocytes % 13.5 % (19.3-51.7); Mean Cell Volume 88.4 fL (79.4-94.8); Mean Corpuscular Hemoglobin 28.7 pg (25.6-32.2); Mean Corpuscular Hgb Concent. 32.5 g/dL (32.2-35.5); Mean Platelet Volume 10.2 fL (9.4-12.3); Monocyte (Absolute #) 1.11 x10^3/uL (0.24-0.86); Monocytes % 5.3 % (4.7-12.5); Neutrophil % 80.6 % (34.0-71.1); Platelet Count 391 x10^3/uL (182-369); Red Blood Count 5.58 x10^6/uL (3.93-5.22); Red Cell Distribution Width 12.4 % (11.7-14.4); White Blood Count 21.1 x10^3/uL (3.98-10.04)
[2024-11-16 23:14] LABS: HCG URINE TEST NEGATIVE (NEGATIVE)
[2024-11-16 23:19] LABS: Appearance Cloudy (Clear); Bacteria Moderate /HPF (None Seen); Bilirubin Negative (Negative); Blood Negative (Negative); Epithelial Cells Few /HPF (None Seen); Glucose, Urine Negative (Negative); Ketones Negative (Negative); Leukocyte Esterase Small (Negative); Nitrite Negative (Negative); Protein,Urine Dip Negative (Negative); Urobilinogen 0.2 mg/dL (0.2); WBC 21-50 /HPF (0-5)
[2024-11-16 23:26] LABS: ALBUMIN 4.6 g/dL (3.5-5.0); BILIRUBIN,TOTAL 0.7 mg/dL (0.2-1.3); Calcium 9.7 mg/dL (8.4-10.2); Creatinine 1 0.82 mg/dL (0.52-1.04); EST GLOMERULAR FILTRATION RATE 93.8 ML/MIN; Potassium 3.7 mmol/L (3.5-5.1); Total Protein 6.9 g/dL (6.3-8.2)
--- NOTE | 2024-11-16 23:26 | ERPHSYRPT ---
- History of Present Illness Time Seen by Provider: 11/16/24 22:45 Historian: patient Exam Limitations: no limitations Patient Subjective Stated Complaint: pt states that she has been having intermitten abd pain Triage Nursing Assessment: pt ambulated into the er; pt is axo x4; c/o abd pain; pt denies pain at time of assessment; pt states intermitten pain to epigastric region; c/o N/V/D; abd soft, non tender; active bowel sounds in all quads; skin PDW; no respiratory distress present; vitals wnl Physician History: 39-year-old female presents to our emergency department for evaluation of epigastric pain. Patient states the pain started after dinner this evening. Patient began to experience some pain followed by nausea vomiting and diarrhea. Pain described as an intermittent ache. No radiation. No other sick household members reported. No active pain at this time. Pain primarily occurs intermittently. No associated chest pain or shortness of breath. No trauma no fever. Patient otherwise feels well. Patient voices no other complaints or concerns at this time. Portions of this note were created with voice recognition technology. There may be grammatical, spelling, punctuation or sound alike errors Timing/Duration: today Activities at Onset: none Quality: aching Abdominal Pain Onset Location: epigastric Pain Radiation: no radiation Severity of Pain-Max: moderate Severity of Pain-Current: mild Modifying Factors: Improves With: palpation Associated Symptoms: diarrhea, nausea, vomiting Previous symptoms: no prior history Allergies/Adverse Reactions: No Known Drug Allergies Allergy (Verified 11/16/24 22:38) Home Medications: Alprazolam [Xanax] 0.5 mg PO TID PRN 11/16/24 [History] Fenofibrate Nanocrystallized [Fenofibrate] 48 mg PO DAILY 11/16/24 [History] Norethindrone AC-Eth Estradiol [Ana 1.5 mg-30 Mcg Tablet] 1 each PO DAILY 11/16/24 [History] Omeprazole 20 mg PO DAILY 11/16/24 [History] Rosuvastatin Calcium 5 mg PO DAILY 11/16/24 [History] Hx Tetanus, Diphtheria Vaccination/Date Given: No (unknown) Hx Influenza Vaccination/Date Given: No Hx Pneumococcal Vaccination/Date Given: No Travel Risk - International Travel Have you traveled outside of the country in past 3 weeks: No - Emerging Infectious Disease Are you exhibiting symptoms associated with any current EIDs: Yes Symptoms: Abdominal Pain, Diarrhea, Vomitting - Review of Systems Constitutional: No Symptoms, No Fever, No Chills Eyes: No Symptoms Ears, Nose, & Throat: No Symptoms Respiratory: No Symptoms, No Cough, No Dyspnea Cardiac: No Symptoms, No Chest Pain, No Edema, No Syncope Abdominal/Gastrointestinal: No Symptoms, No Abdominal Pain, No Nausea, No Vomiting, No Diarrhea Genitourinary Symptoms: No Symptoms, No Dysuria Musculoskeletal: No Symptoms, No Back Pain, No Neck Pain Skin: No Symptoms, No Rash Neurological: No Symptoms, No Dizziness, No Focal Weakness, No Sensory Changes Psychological: No Symptoms Endocrine: No Symptoms Hematologic/Lymphatic: No Symptoms Immunological/Allergic: No Symptoms All Other Systems: Reviewed and Negative - Past Medical History Pertinent Past Medical History: Yes Neurological History: No Pertinent History ENT History: No Pertinent History Cardiac History: High Cholesterol Respiratory History: No Pertinent History Endocrine Medical History: No Pertinent History Musculoskeletal History: No Pertinent History GI Medical History: GERD History: No Pertinent History Psycho-Social History: Anxiety Female Reproductive Disorders: No Pertinent History - Past Surgical History Past Surgical History: Yes Neuro Surgical History: No Pertinent History Cardiac: No Pertinent History Respiratory: No Pertinent History Gastrointestinal: No Pertinent History Genitourinary: No Pertinent History Musculoskeletal: No Pertinent History Female Surgical History: Other Other Surgical History: YOLANDA Champion, OBCYNTHIAN - Female History Hx Now: No - Social History Smoking Status: Never smoker Exposure to second hand smoke: No Drug Use: none Patient Lives Alone: Yes - Social Determinants of Health Will the patient participate in the screening: Yes Do you worry about a steady place to live?: No Do you have any problems with any of the following?: No known problems In the past 12 months,have you had to go without utilities?: No Transportation Issues: No Has anyone in your support network made you feel unsafe?: No Have you or anyone in your house had to go without enough: No - Nursing Vital Signs Nursing Vital Signs: Initial Vital Signs Pulse Rate 89 11/16/24 22:36 Blood Pressure 118/78 11/16/24 22:36 O2 Sat by Pulse Oximetry 100 11/16/24 22:36 Pain Scale Pain Intensity 0 - Physical Exam General Appearance: no apparent distress, alert Eye Exam: PERRL/EOMI, eyes nml inspection Ears, Nose, Throat Exam: normal ENT inspection, moist mucous membranes Neck Exam: normal inspection, non-tender, supple, full range of motion Respiratory Exam: normal breath sounds, lungs clear, airway intact, No respiratory distress Cardiovascular Exam: regular rate/rhythm, normal heart sounds Gastrointestinal/Abdomen Exam: soft, No tenderness, No mass Back Exam: normal inspection, normal range of motion, No CVA tenderness, No vertebral tenderness Extremity Exam: normal inspection, normal range of motion, pelvis stable Neurologic Exam: alert, oriented x 3, cooperative, normal mood/affect, sensation nml, No motor deficits Skin Exam: normal color, warm, dry Lymphatic Exam: No adenopathy SpO2 Interpretation: normal SpO2: 100 O2 Delivery: Room Air - Course Nursing assessment & vital signs reviewed: Yes - CT Exams Abdomen/Pelvis CT Interpretation: Tele-radiologist Report (Circumferential bowel thickening from pylorus of stomach through transverse colon.) Ordered Tests: Active Orders 24 hr Category Date Time Status IV Insertion STAT Care 11/16/24 22:55 Active ABDOMEN AND PELVIS W CONTRAST [CT] Stat Exams 11/16/24 22:55 Completed CBC W DIFF Stat Lab 11/16/24 23:00 Completed CMP Stat Lab 11/16/24 23:00 Completed CULTURE,URINE Stat Lab 11/16/24 22:58 Received HCG QUALITATIVE, URINE Stat Lab 11/16/24 22:58 Completed LIPASE Stat Lab 11/16/24 23:00 Completed TROPONIN Q4H Lab 11/16/24 23:00 Completed TROPONIN Q4H Lab 11/17/24 03:22 Completed TROPONIN Q4H Lab 11/17/24 07:00 Ordered UA W/RFX UR CULTURE Stat Lab 11/16/24 22:58 Completed Medication Summary Discontinued Medications Generic Name Dose Route Start Last Admin Trade Name Freq PRN Reason Stop Dose Admin Sodium Chloride 1,000 mls @ 999 mls/hr 11/16/24 22:55 11/17/24 00:26 Sodium Chloride 0.9% 1000 Ml IV 11/16/24 23:55 Infused .Q1H1M STA Infusion Sodium Chloride Confirm 11/16/24 22:59 Sodium Chloride 0.9% 1000 Ml Administered 11/16/24 23:00 Dose 1,000 mls @ ud .ROUTE .STK-MED ONE Levofloxacin/Dextrose 500 mg in 100 mls @ 100 mls/hr 11/17/24 01:26 11/17/24 02:47 Levofloxacin 500mg/100ml D5w IV 11/17/24 02:25 Infused STAT STA Infusion Metronidazole 500 mg in 100 mls @ 200 mls/hr 11/17/24 01:26 11/17/24 02:26 Flagyl 500 Mg Ivpb IV 11/17/24 01:55 Infused STAT STA Infusion Metronidazole Confirm 11/17/24 01:32 Flagyl 500 Mg Ivpb Administered 11/17/24 01:33 Dose 500 mg in 100 mls @ ud IV .STK-MED ONE Levofloxacin/Dextrose Confirm 11/17/24 01:35 Levofloxacin 500mg/100ml D5w Administered 11/17/24 01:36 Dose 500 mg in 100 mls @ ud IV .STK-MED ONE Morphine Sulfate 2 mg 11/17/24 00:15 11/17/24 00:19 Morphine Sulfate 2 Mg/Ml Inj IV 11/17/24 00:16 2 mg STAT ONE Administration Morphine Sulfate Confirm 11/17/24 00:18 Morphine Sulfate 2 Mg/Ml Inj Administered 11/17/24 00:19 Dose 2 mg .ROUTE .STK-MED ONE Morphine Sulfate 4 mg 11/17/24 03:11 11/17/24 03:14 Morphine Sulfate 4 Mg/Ml Injection IV 11/17/24 03:12 4 mg STAT ONE Administration Morphine Sulfate Confirm 11/17/24 03:14 Morphine Sulfate 4 Mg/Ml Injection Administered 11/17/24 03:15 Dose 4 mg .ROUTE .STK-MED ONE Ondansetron HCl 4 mg 11/17/24 00:15 11/17/24 00:19 Ondansetron Hcl 4 Mg/2 Ml Vial IV 11/17/24 00:16 4 mg STAT ONE Administration Ondansetron HCl Confirm 11/17/24 00:18 Ondansetron Hcl 4 Mg/2 Ml Vial Administered 11/17/24 00:19 Dose 4 mg .ROUTE .STK-MED ONE Ondansetron HCl 4 mg 11/17/24 03:29 11/17/24 03:38 Ondansetron Hcl 4 Mg/2 Ml Vial IV 11/17/24 03:30 Not Given STAT ONE Lab/Rad Data: Laboratory Result Diagrams 11/16/24 23:00 11/16/24 23:00 Laboratory Results 11/17/24 11/17/24 11/16/24 Range/Units 03:22 00:18 23:00 WBC (3.98-10.04) x10^3/uL RBC (3.93-5.22) x10^6/uL Hgb (11.2-15.7) g/dL Hct (34.1-44.9) % MCV (79.4-94.8) fL MCH (25.6-32.2) pg MCHC (32.2-35.5) g/dL RDW (11.7-14.4) % Plt Count (182-369) x10^3/uL MPV (9.4-12.3) fL Gran % (34.0-71.1) % Immature Gran % (Auto) (0.001-0.429) % Nucleat RBC Rel Count (0.00-0.2) % Eos # (Auto) (0.04-0.36) x10^3/uL Immature Gran # (Auto) (0.001-0.031) x10^3u/L Absolute Lymphs (auto) (1.18-3.74) x10^3/uL Absolute Monos (auto) (0.24-0.86) x10^3/uL Absolute Nucleated RBC (0.00-0.012) x10^3u/L Lymphocytes % (19.3-51.7) % Monocytes % (4.7-12.5) % Eosinophils % (0.7-5.8) % Basophils % (0.1-1.2) % Absolute Granulocytes (1.56-6.13) x10^3/uL Basophils # (0.01-0.08) x10^3/uL Sodium (135-145) mmol/L Potassium (3.5-5.1) mmol/L Chloride (98-107) mmol/L Carbon Dioxide (22-30) mmol/L Anion Gap (5-15) MEQ/L BUN (7-17) mg/dL Creatinine (0.52-1.04) mg/dL Estimated GFR ML/MIN Glucose (74-106) mg/dL Calcium (8.4-10.2) mg/dL Total Bilirubin (0.2-1.3) mg/dL AST (14-36) U/L ALT (0-35) U/L Alkaline Phosphatase (38-126) U/L Troponin I < 0.012 < 0.012 (0.000-0.033) ng/mL Serum Total Protein (6.3-8.2) g/dL Albumin (3.5-5.0) g/dL Lipase (23-300) U/L Urine Color (Yellow) Urine Appearance (Clear) Urine pH (4.6-8.0) Ur Specific [place] (1.005-1.030) Urine Protein (Negative) Urine Glucose (UA) (Negative) mg/dL Urine Ketones (Negative) Urine Blood (Negative) Urine Nitrite (Negative) Urine Bilirubin (Negative) Urine Urobilinogen (0.2) mg/dL Ur Leukocyte Esterase (Negative) U Hyaline Cast (Auto) (0-2) /LPF Urine Microscopic RBC (0-5) /HPF Urine Microscopic WBC (0-5) /HPF Ur Epithelial Cells (None Seen) /HPF Urine Bacteria (None Seen) /HPF Urine Culture Reflexed (NO) Urine HCG, Qual (NEGATIVE) Influenza Type A Ag NEGATIVE (NEGATIVE) Influenza Type B Ag NEGATIVE (NEGATIVE) RSV (PCR) NEGATIVE (NEGATIVE) SARS-CoV-2 (PCR) NEGATIVE (NEGATIVE) 11/16/24 11/16/24 11/16/24 Range/Units 23:00 23:00 22:58 WBC 21.1 H (3.98-10.04) x10^3/uL RBC 5.58 H (3.93-5.22) x10^6/uL Hgb 16.0 H (11.2-15.7) g/dL Hct 49.3 H (34.1-44.9) % MCV 88.4 (79.4-94.8) fL MCH 28.7 (25.6-32.2) pg MCHC 32.5 (32.2-35.5) g/dL RDW 12.4 (11.7-14.4) % Plt Count 391 H (182-369) x10^3/uL MPV 10.2 (9.4-12.3) fL Gran % 80.6 H (34.0-71.1) % Immature Gran % (Auto) 0.5 H (0.001-0.429) % Nucleat RBC Rel Count 0.0 (0.00-0.2) % Eos # (Auto) 0 L (0.04-0.36) x10^3/uL Immature Gran # (Auto) 0.10 H (0.001-0.031) x10^3u/L Absolute Lymphs (auto) 2.85 (1.18-3.74) x10^3/uL Absolute Monos (auto) 1.11 H (0.24-0.86) x10^3/uL Absolute Nucleated RBC 0.00 (0.00-0.012) x10^3u/L Lymphocytes % 13.5 L (19.3-51.7) % Monocytes % 5.3 (4.7-12.5) % Eosinophils % 0.0 L (0.7-5.8) % Basophils % 0.1 (0.1-1.2) % Absolute Granulocytes 17.04 H (1.56-6.13) x10^3/uL Basophils # 0.02 (0.01-0.08) x10^3/uL Sodium 136 (135-145) mmol/L Potassium 3.7 (3.5-5.1) mmol/L Chloride 101 (98-107) mmol/L Carbon Dioxide 23 (22-30) mmol/L Anion Gap 15.0 (5-15) MEQ/L BUN 13 (7-17) mg/dL Creatinine 0.82 (0.52-1.04) mg/dL Estimated GFR 93.8 ML/MIN Glucose 103 (74-106) mg/dL Calcium 9.7 (8.4-10.2) mg/dL Total Bilirubin 0.70 (0.2-1.3) mg/dL AST 28 (14-36) U/L ALT 19 (0-35) U/L Alkaline Phosphatase 47 (38-126) U/L Troponin I (0.000-0.033) ng/mL Serum Total Protein 6.9 (6.3-8.2) g/dL Albumin 4.6 (3.5-5.0) g/dL Lipase 136 (23-300) U/L Urine Color (Yellow) Urine Appearance (Clear) Urine pH (4.6-8.0) Ur Specific [place] (1.005-1.030) Urine Protein (Negative) Urine Glucose (UA) (Negative) mg/dL Urine Ketones (Negative) Urine Blood (Negative) Urine Nitrite (Negative) Urine Bilirubin (Negative) Urine Urobilinogen (0.2) mg/dL Ur Leukocyte Esterase (Negative) U Hyaline Cast (Auto) (0-2) /LPF Urine Microscopic RBC (0-5) /HPF Urine Microscopic WBC (0-5) /HPF Ur Epithelial Cells (None Seen) /HPF Urine Bacteria (None Seen) /HPF Urine Culture Reflexed (NO) Urine HCG, Qual NEGATIVE (NEGATIVE) Influenza Type A Ag (NEGATIVE) Influenza Type B Ag (NEGATIVE) RSV (PCR) (NEGATIVE) SARS-CoV-2 (PCR) (NEGATIVE) 11/16/24 Range/Units 22:58 WBC (3.98-10.04) x10^3/uL RBC (3.93-5.22) x10^6/uL Hgb (11.2-15.7) g/dL Hct (34.1-44.9) % MCV (79.4-94.8) fL MCH (25.6-32.2) pg MCHC (32.2-35.5) g/dL RDW (11.7-14.4) % Plt Count (182-369) x10^3/uL MPV (9.4-12.3) fL Gran % (34.0-71.1) % Immature Gran % (Auto) (0.001-0.429) % Nucleat RBC Rel Count (0.00-0.2) % Eos # (Auto) (0.04-0.36) x10^3/uL Immature Gran # (Auto) (0.001-0.031) x10^3u/L Absolute Lymphs (auto) (1.18-3.74) x10^3/uL Absolute Monos (auto) (0.24-0.86) x10^3/uL Absolute Nucleated RBC (0.00-0.012) x10^3u/L Lymphocytes % (19.3-51.7) % Monocytes % (4.7-12.5) % Eosinophils % (0.7-5.8) % Basophils % (0.1-1.2) % Absolute Granulocytes (1.56-6.13) x10^3/uL Basophils # (0.01-0.08) x10^3/uL Sodium (135-145) mmol/L Potassium (3.5-5.1) mmol/L Chloride (98-107) mmol/L Carbon Dioxide (22-30) mmol/L Anion Gap (5-15) MEQ/L BUN (7-17) mg/dL Creatinine (0.52-1.04) mg/dL Estimated GFR ML/MIN Glucose (74-106) mg/dL Calcium (8.4-10.2) mg/dL Total Bilirubin (0.2-1.3) mg/dL AST (14-36) U/L ALT (0-35) U/L Alkaline Phosphatase (38-126) U/L Troponin I (0.000-0.033) ng/mL Serum Total Protein (6.3-8.2) g/dL Albumin (3.5-5.0) g/dL Lipase (23-300) U/L Urine Color Yellow (Yellow) Urine Appearance Cloudy A (Clear) Urine pH 5.0 (4.6-8.0) Ur Specific [place] 1.020 (1.005-1.030) Urine Protein Negative (Negative) Urine Glucose (UA) Negative (Negative) mg/dL Urine Ketones Negative (Negative) Urine Blood Negative (Negative) Urine Nitrite Negative (Negative) Urine Bilirubin Negative (Negative) Urine Urobilinogen 0.2 (0.2) mg/dL Ur Leukocyte Esterase Small A (Negative) U Hyaline Cast (Auto) 3-5 A (0-2) /LPF Urine Microscopic RBC 3-5 (0-5) /HPF Urine Microscopic WBC 21-50 A (0-5) /HPF Ur Epithelial Cells Few (None Seen) /HPF Urine Bacteria Moderate A (None Seen) /HPF Urine Culture Reflexed YES (NO) Urine HCG, Qual (NEGATIVE) Influenza Type A Ag (NEGATIVE) Influenza Type B Ag (NEGATIVE) RSV (PCR) (NEGATIVE) SARS-CoV-2 (PCR) (NEGATIVE) - Progress Progress: improved Progress Note: I spoke to Dr. Romero of general surgery. In light of the differential including Crohn's and or possibly a vasculitis she advised transfer to facility with GI and possible IR. 11/17/24 01:[address] Small hospitalist at [facility] who accepts transfer at 3:04 AM. We are awaiting a return call with a bed assignment at this point. 11/17/24 03:07 Case discussed with hospitalist at [facility] who accepts transfer at 3:12 AM. Hospitalist requesting we send off C. difficile 11/17/24 03:16 39-year-old female presents to emergency department for evaluation of nausea and vomiting diarrhea and epigastric pain. Workup reveals a leukocytosis of 21,000 and a urinary tract infection. Antibiotics administered. IV fluids infused. Patient received multiple rounds of morphine as well as Zofran for nausea. General surgery feels that patient would be better served transferred to a facility with GI possibly interventional radiology. Patient was accepted by [facility]. Transport time is estimated to be 8:45 AM. Patient reassessed. She is resting comfortably. No active pain. Patient slept well this morning. Patient voices no other complaints or concerns at this time. Portions of this note were created with voice recognition technology. There may be grammatical, spelling, punctuation or sound alike errors Complexity of problem addressed is moderate acute complicated. No critical care time. Complexity of data reviewed and analyzed is extensive. Test ordered test reviewed results analyzed and correlated clinically with history and physical exam. Risk of complication and or risk of morbidity/mortality of patient management is high. Patient requires transfer to higher level of care. Vital stable. Time spent to transfer patient is approximately 20 minutes. Plan of care established for shared decision making. No social determinants of health present to impede follow-up. Portions of this note were created with voice recognition technology. There may be grammatical, spelling, punctuation or sound alike errors 11/17/24 06:47 Counseled pt/family regarding: lab results, diagnosis, rad results - Departure Departure Disposition: Transfer Clinical Impression: Epigastric pain, Nausea vomiting and diarrhea, Urinary tract infection, Enteritis, Colitis, Leukocytosis Condition: Stable Critical Care Time: No Referrals: KEITH FRANCIS ANIMAL ANATOMIST [Primary Care Provider] - Follow up/PCP as directed
[2024-11-17] MEDS ORDERED: MORPHINE SULFATE 2 MG INJ ONE (00:18)
[2024-11-17] MEDS ORDERED: Zofran 4 MG/2 ML VIAL ONE (00:18)
[2024-11-17] MEDS: MORPHINE SULFATE 2 MG INJ IV ONE (00:19)
[2024-11-17] MEDS: Zofran 4 MG/2 ML VIAL IV ONE ×2 (00:19→03:38)
--- NOTE | 2024-11-17 00:52 | XRAY ---
CLINICAL HISTORY: pain COMPARISON: None. TECHNIQUE: Multiple contiguous axial images were obtained from the level of diaphragm to the pubis symphysis. This study was acquired after the IV administration of iodinated contrast material, given the patient's indications for the examination. If IV contrast material had not been administered, the likelihood of detecting abnormalities relevant to the patient's condition would have been substantially decreased. Coronal and sagittal reformatted images were generated and reviewed to improve anatomic localization and optimize lesion detection. CT scan was performed according to ALARA (as low as reasonably achievable). FINDINGS: The visualized lung bases are clear. ABDOMEN/PELVIS: Circumferential wall thickening/submucosal edema with mucosal hyperenhancement is noted involving the gastric pylorus, duodenum. Significant periduodenal fat stranding and fluid is noted. Reactive thickening of the anterior renal fascia and lateral Conal fascia is noted on the right side. Similar circumferential wall thickening/submucosal edema is also noted involving few of the jejunal, most of the ileal loops, hepatic flexure and adjacent ascending colon and transverse colon at places. Mild to moderate free fluid is noted within the abdomen and pelvic cavity. No evidence of bowel obstruction /perforation/pneumoperitoneum is detected. No significant enlarged lymph nodes are noted. Superior mesenteric artery and vein show normal opacification. The contour abnormality is noted involving the right lateral wall of the uterus, possible underlying subserosal fibroid. The liver is normal in size and attenuation. No focal liver lesions are seen. There is no intra or extrahepatic biliary ductal dilatation. Hepatic vasculature is patent. The gallbladder is unremarkable. The spleen is unremarkable. The pancreas is unremarkable. Both adrenal glands are unremarkable. The kidneys are normal in size and attenuation. There is no hydronephrosis. No perinephric fat stranding is seen. No renal calculi or renal masses are identified. The ureters are normal in caliber and no ureteral calculi are seen. The bladder is normal in contour. The aorta is normal in caliber. No aggressive appearing osseous lesions are identified. IMPRESSION: 1. Circumferential wall thickening/submucosal edema with mucosal hyperenhancement is noted involving the gastric pylorus, duodenum. Significant periduodenal fat stranding and fluid is noted. Reactive thickening of the anterior renal fascia and lateral Conal fascia is noted on the right side. 2. Similar circumferential wall thickening/submucosal edema is also noted involving few of the jejunal, most of the ileal loops, hepatic flexure and adjacent ascending colon and transverse colon at places. Possibility of underlying Crohn's disease needs consideration (in view age, small bowel involvement and skip lesions). Other possibility includes vasculitis (in view of non territorial distribution). Other possibility includes infective etiology. Suggested clinical/lab correlation. Correlation with the prior study is suggested for better evaluation. 3. Mild to moderate free fluid is noted within the abdomen and pelvic cavity. 4. No evidence of bowel obstruction /perforation/pneumoperitoneum is detected. 5. No significant enlarged lymph nodes are noted. 6. Superior mesenteric artery and vein show normal opacification. 7. The contour abnormality is noted involving the right lateral wall of the uterus, possible underlying subserosal fibroid. Ultrasound correlation is suggested. Electronically Signed by: Jorge Alberto Yin MD. (11/17/2024 00:47:37 EST)
[2024-11-17 00:57] LABS: INFLUENZA A NEGATIVE (NEGATIVE); INFLUENZA B NEGATIVE (NEGATIVE); RESPIRATORY SYNCTIAL VIRUS NEGATIVE (NEGATIVE); SARS-CoV-2 Xpert Express NEGATIVE (NEGATIVE)
[2024-11-17] MEDS ORDERED: FLAGYL 500 MG IVPB 500 MG/100 ML BAG IV ONE (01:32)
[2024-11-17] MEDS: FLAGYL 500 MG IVPB 500 MG/100 ML BAG IV STA (01:34)
[2024-11-17] MEDS ORDERED: Levofloxacin 500MG/100ML D5W 500 MG/100 ML BAG IV ONE (01:35)
[2024-11-17] MEDS: Levofloxacin 500MG/100ML D5W 500 MG/100 ML BAG IV STA (01:36)
[2024-11-17] MEDS ORDERED: MORPHINE SULFATE 4 MG INJ ONE (03:14)
[2024-11-17] MEDS: MORPHINE SULFATE 4 MG INJ IV ONE (03:14)
[2024-11-17 06:53] VITALS: O2SAT 100
[2024-11-17 08:04] VITALS: BP 106/69; PULSE 74; RESP 16
== END 2024-11-17 09:18 | disposition short-term general hospital (02) ==
LOC: ED 22:30
DX: N39.0 Urinary tract infection, site not specified (principal); R10.13 Epigastric pain; R11.2 Nausea with vomiting, unspecified; K52.9 Noninfective gastroenteritis and colitis, unspecified; D72.829 Elevated white blood cell count, unspecified; E78.5 Hyperlipidemia, unspecified; Z79.899 Other long term (current) drug therapy
CPT/HCPCS: 0241U; 36415; 74177; 80053; 81001; 81025; 83690; 84484; 85025; 87086; 96360; 96365; 96374; 96375; 99285; 96361; J1956; J2270; J2405